=== PATIENT | female | born 1945 | race African-American/Black ===

== ENCOUNTER 2022-01-29 13:47 | Emergency (ER) | payer OTHER ==
[~2022-01-29] VITALS: Ht 162.6 cm; Wt 73.0 kg
[2022-01-29] MEDS ORDERED: LORAZEPAM 0.5MG TABLET PO ONE (14:45)
[2022-01-29 17:48] LABS: EOSINOPHILS % 0.9 % (0.0-5.0); HEMATOCRIT. 38.9 % (36.0-48.0); LYMPHOCYTES % 23.8 % (20.0-50.0); MEAN CORPUSCULAR HEMOGLOBIN 31.6 pg (28.0-32.0); MEAN CORPUSCULAR VOLUME 94.4 fL (81.0-99.0); MEAN PLATELET VOLUME 11.2 fl (7.4-10.4); MONOCYTES % 5.2 % (2.0-8.0); NEUTROPHILS % 69.1 % (40.0-76.0); PLATELET 179 x1000/uL (130-400); RED BLOOD CELL COUNT 4.12 mill/uL (4.2-5.4); RED CELL DISTRIBUTION WIDTH 11.8 % (11.6-14.6)
[2022-01-29 17:56] LABS: CHLORIDE 114 mEq/L (98-107)
[2022-01-29] MEDS ORDERED: LORA-249 MT (18:26)
[2022-01-29 18:33] VITALS: BP 142/57
== END 2022-01-29 18:39 | disposition home or self-care (01) ==
LOC: ER 13:47
DX: F41.9 Anxiety disorder, unspecified (principal); R06.02 Shortness of breath; R00.2 Palpitations; Z88.2 Allergy status to sulfonamides
CPT/HCPCS: 36415; 71045; 80053; 83880; 84484; 85025; 85379; 93971; 99285

== ENCOUNTER 2023-08-27 10:45 | Emergency (ER) | payer OTHER ==
[~2023-08-27] VITALS: Ht 162.6 cm; Wt 64.0 kg
[~2023-08-27 10:45] MED LIST: LORA-249 MT
[2023-08-27 10:49] VITALS: BP 167/72; TEMP 97.9; O2SAT 98
[2023-08-27] MEDS ORDERED: PREDNISONE 20MG TABLET PO ONE (11:45)
[2023-08-27] MEDS ORDERED: IPRATROPIUM/ALBUTEROL 0.5-3(2.5)MG/3ML NEB HHN ONE (11:45)
[2023-08-27 12:10] VITALS: PULSE 82; RESP 20
[2023-08-27 12:27] LABS: BASOPHILS % 0.5 % (0.0-2.0); EOSINOPHILS % 0.4 % (0.0-5.0); HEMATOCRIT. 42.9 % (36.0-48.0); HEMOGLOBIN. 14.1 g/dL (12.0-16.0); LYMPHOCYTES % 18.2 % (20.0-50.0); MEAN CORPUSCULAR HEMOGLOBIN 31.6 pg (28.0-32.0); MEAN CORPUSCULAR HGB CONC 32.9 g/dL (31.0-37.0); MEAN CORPUSCULAR VOLUME 96.1 fL (81.0-99.0); MEAN PLATELET VOLUME 11.1 fl (7.4-10.4); MONOCYTES % 3.7 % (2.0-8.0); NEUTROPHILS % 77.2 % (40.0-76.0); PLATELET 201 x1000/uL (130-400); RED BLOOD CELL COUNT 4.46 mill/uL (4.2-5.4); RED CELL DISTRIBUTION WIDTH 12.7 % (11.6-14.6); WHITE BLOOD COUNT 7.7 x1000/uL (4.5-11.0)
[2023-08-27 12:48] LABS: CHLORIDE 112 mEq/L (98-107); INDEX HEMOLYSI 1 (1-3); INDEX ICTERIC 1 (1-4); INDEX LIPEMIC 1 (1-3); POTASSIUM 3.2 mEq/L (3.5-5.1); SODIUM 145 mEq/L (136-145)
[2023-08-27 13:01] LABS: ALANINE AMINOTRANSFERASE 10 IU/L (13-61); ALBUMIN 3.5 g/dL (3.4-5.0); ASPARTATE AMINOTRANSFERASE 12 IU/L (15-37); BILIRUBIN TOTAL 0.6 mg/dL (0.1-1.0); CALCIUM 9.4 mg/dL (8.5-10.1); CARBON DIOXIDE 26 mEq/L (21-32); CREATININE 0.7 mg/dL (0.6-1.3); GLUCOSE 132 mg/dL (70-105); NT PRO B-TYPE NATRIURETIC PEP 410 pg/mL (5-125); PROTEIN TOTAL 7.1 g/dL (6.0-8.3); TROPONIN I HIGH SENSITIVITY 6 ng/L (<54); UREA NITROGEN BLOOD 15 mg/dL (7-21)
[2023-08-27] MEDS ORDERED: P20 MT (13:06)
[2023-08-27] MEDS ORDERED: ALBU6.7H15 INH (13:06)
== END 2023-08-27 13:36 | disposition home or self-care (01) ==
LOC: ER 11:01
DX: J45.901 Unspecified asthma with (acute) exacerbation (principal); F41.1 Generalized anxiety disorder; I10 Essential (primary) hypertension; Z88.2 Allergy status to sulfonamides
CPT/HCPCS: 99285; 71045; 80053; 83880; 85025; 84484; 36415; 94640; 93005; J7512